=== PATIENT | female | born 1990 | race Asian ===

== ENCOUNTER 2022-01-27 19:19 | Inpatient (IN) ==
--- NOTE | 2022-01-27 20:15 | History & Physical Report ---
Date of Service January 27, 2022 Assessment & Plan (1) Gestational diabetes mellitus (GDM) affecting : (2) IUGR (intrauterine growth restriction) affecting care of mother: (3) Unfavorable cervix in term : (4) 39 weeks gestation of : Plan virk ripening balloon placed and pt tate well. will monitor x 1hr and dc home. parameters to call reviewed. what to expect with virk ripening balloon reviewed. Admission and Anticipated Discharge Date Admission Date: January 27, 2022 History of Present Illness Chief Complaint: unfavorable cx at term, iugr Primary Care Provider: NO PCP 31yo at 39wks ega presents to LD for planned virk ripening balloon for unfavorable cx at term, planned induction in am for IUGR. Feels well. No complaints. +FM. PNC c/b 1. iugr 2. gdm PNL rh pos, ri gbs neg OBH: g1 Allergies Allergy/AdvReac Type Severity Reaction Status Date / Time No Known Allergies Allergy Verified 01/25/22 13:13 Home Medications Medication Instructions Recorded Confirmed Type prenat.vits,carlito,nzv-ojdj-hcsyh 1 tab PO DAILY 06/22/21 01/27/22 History acetone (urine) test (Ketone Urine #50 ea 09/07/21 01/25/22 Rx Test) blood sugar diagnostic (OneTouch #150 ea 09/07/21 01/25/22 Rx Verio test strips) blood-glucose meter (OneTouch #1 ea 09/07/21 01/25/22 Rx Verio Flex meter) lancets 33 gauge (OneTouch Delica #150 ea 09/07/21 01/25/22 Rx Plus Lancet) Breast Pump #1 ea 10/19/21 01/25/22 Rx Patient History Medical History (Updated 01/27/22 @ 20:14 by Ariana Garrido MD, FACOG) Varicella vaccination Surgical History (Updated 06/22/21 @ 11:11 by Omayra Scott) S/P wisdom tooth extraction Family History (Updated 06/22/21 @ 11:01 by Omayra Scott) Father Diabetes Denies family history of Ovarian cancer Breast cancer Colorectal cancer Hypertension Social History (Updated 06/22/21 @ 11:00 by Omayra Scott) Smoking Status: Never smoker Hx Alcohol Use: No Hx Substance Use: No Preferred Language: Japanese marital status: marital status details: Brenda Batista (30) [phone] Current Living Situation: Spouse Current Living Situation Comment: FOB, no pets current occupational status: unemployed Feels Safe at Home: Yes Safety Concerns: Feels Safe At This Time Review of Systems as per Subjective / HPI Physical Exam Constitutional: WD/WN, vitals as above Neurologic: grossly normal Psychiatric: A+Ox3, euthymic affect Genitourinary: Manual OB Exam: + cervical dilation (<1cm by visualization/50%) OB Exam Monitor Tracing: + external FHT monitor used, + external uterine monitor used (irreg), + category I (nst reactive) and + normal FHT variability PROCEDURE: sse cx visualized, grasped on ant lip with ring forcep, virk through os and balloon inflated with 40cc sterile water. Spec removed, virk taped to leg. pt tate well. Results & Data ([facility]) Vital Signs (Past 12 Hours) Vital Signs Temp Pulse Resp BP 01/27/22 19:35 98.6 F 89 18 107/72 01/27/22 19:32 98.6 F 89 18 107/72 Coding Level of Care Code None Diagnoses Gestational diabetes mellitus (GDM) affecting O24.419 IUGR (intrauterine growth restriction) affecting care of mother O36.5990 Unfavorable cervix in term O34.40 39 weeks gestation of Z3A.39 CPT Codes Misx Procedure Codes - 25973 Placement of cervical dilator: 60513 Placement of cervical dilator ([id number]) Misx Procedure Codes - 53858 NST: 41910 NST ([id number])
== END 2022-01-27 21:21 | disposition home or self-care (01) | DRG 833 ==
LOC: 4S1 19:22

== ENCOUNTER 2022-01-28 11:42 | Inpatient (IN) ==
[2022-01-28] MEDS: LACTATED RINGER'S 1,000 ML IV PRN ×3 (12:26→22:52)
[2022-01-28] MEDS ORDERED: OXYTOCIN 30 UNITS/500 ML BAG IV PRN ×2 (12:29→12:30)
[2022-01-28 12:55] LABS: Hematocrit (blood only) 37.6 % (34.1-44.9); Hemoglobin 12.4 g/dl (12.0-16.0); Mean Corpuscular Hemoglobin 29.4 pg (25.0-34.0); Mean Corpuscular Volume 89.1 fL (80.0-100.0); Mean Platelet Volume 10.7 fL (9.4-12.3); Platelet Count 170 K/uL (130-400); RDW Coefficient of Variation 12.8 % (11.5-14.5); Red Blood Count 4.22 M/uL (3.93-5.22); White Blood Count 10.75 K/ul (4.8-10.8)
--- NOTE | 2022-01-28 13:04 | History & Physical Report ---
Date of Service January 28, 2022 Assessment & Plan (1) IUGR (intrauterine growth restriction) affecting care of mother: Plan: IUP at 39 weeks with IUGR for IOL will keep cervical balloon in place and begin pitocin induction epidural when requested anticipate vaginal Admission and Anticipated Discharge Date Admission Date: January 28, 2022 History of Present Illness Primary Care Provider: NO PCP Patient is a 31yo EDC [birth year] who presents for IOL because of IUGR. testing as been reassuring. GBS -negative. Hickey balloon placed last night and is still in place. some cramping last evening but this resolved. no bloody show or SPROM. also complicated by GDM -diet controlled. Allergies Allergy/AdvReac Type Severity Reaction Status Date / Time No Known Allergies Allergy Verified 01/25/22 13:13 Home Medications Medication Instructions Recorded Confirmed Type prenat.vits,carlito,vsm-ledi-cjaur 1 tab PO DAILY 06/22/21 01/27/22 History acetone (urine) test (Ketone Urine #50 ea 09/07/21 01/25/22 Rx Test) blood sugar diagnostic (OneTouch #150 ea 09/07/21 01/25/22 Rx Verio test strips) blood-glucose meter (OneTouch #1 ea 09/07/21 01/25/22 Rx Verio Flex meter) lancets 33 gauge (OneTouch Delica #150 ea 09/07/21 01/25/22 Rx Plus Lancet) Breast Pump #1 ea 10/19/21 01/25/22 Rx Patient History Medical History (Updated 01/27/22 @ 20:14 by Ariana Garrido MD, FACOG) Varicella vaccination Surgical History (Updated 06/22/21 @ 11:11 by Omayra Scott) S/P wisdom tooth extraction Family History (Updated 06/22/21 @ 11:01 by Omayra Scott) Father Diabetes Denies family history of Ovarian cancer Breast cancer Colorectal cancer Hypertension Social History (Updated 06/22/21 @ 11:00 by Omayra Scott) Smoking Status: Never smoker Hx Alcohol Use: No Hx Substance Use: No Preferred Language: Upper Sorbian Communication Ability: Effective Glaze Mixer Required: No Beliefs That Will Affect Care: None marital status: marital status details: Brenda Lynne (30) [phone] Current Living Situation: Spouse Current Living Situation Comment: FOB, no pets current occupational status: unemployed Feels Safe at Home: Yes Assistive Devices: Glasses Review of Systems All systems reviewed & are unremarkable except as noted in HPI & below Physical Exam Constitutional: WD/WN, vitals as above Psychiatric: A+Ox3, euthymic affect Genitourinary: OB Exam Abdomen: + vertex and + estimated weight (5-6 pounds) Manual OB Exam: + cervical dilation 2 cm, + cervical effacement 70% and + station -2 OB Exam Monitor Tracing: + external FHT monitor used, + external uterine monitor used, + category I and + normal FHT variability Results & Data ([facility]) Vital Signs (Past 12 Hours) Vital Signs Temp Pulse Resp BP 01/28/22 11:52 98.8 F 18 01/28/22 12:01 89 106/67 Coding Level of Care Code None Diagnoses IUGR (intrauterine growth restriction) affecting care of mother O36.5990
[2022-01-28] MEDS ORDERED: ePHEDrine sulfate 50 MG/ML AMP ONE (20:28)
[2022-01-28] MEDS ORDERED: fentaNYL 2MCG/ML ROPIVACAINE 1.25MG/ML 100 ML BAG EPI ONE (20:29)
[2022-01-28] MEDS ORDERED: BUPIVACAINE 0.25% 30 ML VIAL ONE (20:29)
[2022-01-28] MEDS ORDERED: LIDOCAINE 2%/EPINEPHRINE 1:200,000 20 ML SDV ONE (20:29)
[2022-01-28] MEDS ORDERED: SODIUM CHLORIDE 0.9% INJ 10 ML VIAL ONE (20:29)
[2022-01-28] MEDS ORDERED: fentaNYL citrate 100 MCG/2 ML VIAL ONE (20:29)
[2022-01-28] MEDS ORDERED: ONDANSETRON INJ 2 MG/ML 2 ML VIAL IV PRN (21:24)
[2022-01-28] MEDS ORDERED: ePHEDrine sulfate 50 MG/ML AMP IV PRN (21:24)
[2022-01-28] MEDS ORDERED: NALOXONE HCL 1 MG in SODIUM CHLORIDE 0.9% 1000ML 1,000 ML IV PRN (21:24)
[2022-01-28] MEDS ORDERED: diphenhydrAMINE 50 MG/ML VIAL IV PRN (21:24)
[2022-01-28] MEDS ORDERED: NALBUPHINE HCL INJ 10 MG/ML AMP IV PRN (21:24)
[2022-01-28] MEDS ORDERED: NALOXONE HCL 0.4 MG/1 ML VIAL/CARP IV PRN (21:24)
--- NOTE | 2022-01-28 21:26 | Anesthesiology Consultation ---
Date of Service January 28, 2022 Assessment & Plan (1) Encounter for pre-operative examination: Chart Review Chart Review: Patient NOT seen in Pre Admission Testing and Acceptable Risk for Labor Epidural Consults Requested none History Height/Weight Height: 5 ft 2.99 in Weight: 61.235 kg Allergies Allergy/AdvReac Type Severity Reaction Status Date / Time No Known Allergies Allergy Verified 01/28/22 13:27 Medications Home Medications Medication Instructions Recorded Confirmed Last Taken prenat.vits,carlito,rui-tnxi-aprgd 1 tab PO DAILY 06/22/21 01/28/22 01/28/22 11:00 acetone (urine) test (Ketone Urine #50 ea 09/07/21 01/25/22 Unknown Test) blood sugar diagnostic (OneTouch #150 ea 09/07/21 01/25/22 Unknown Verio test strips) blood-glucose meter (OneTouch #1 ea 09/07/21 01/25/22 Unknown Verio Flex meter) lancets 33 gauge (OneTouch Delica #150 ea 09/07/21 01/25/22 Unknown Plus Lancet) Breast Pump #1 ea 10/19/21 01/25/22 Unknown Active Medications Generic Name Dose Route Start Last Admin Trade Name Freq PRN Reason Stop Dose Admin Lactated Ringer's 1,000 mls @ 125 mls/hr 01/28/22 12:29 01/28/22 20:45 Lr IV 01/30/22 12:28 999 mls/hr .Q8H PRN Infusion L&D Protocol Protocol Oxytocin 30 units in 500 mls @ 11 mls/hr 01/28/22 12:30 01/28/22 20:00 Pitocin IV 01/30/22 12:29 0.66 units/hr .Q24H PRN 11 mls/hr Labor Induction/Augmentation Titration Protocol 0.66 UNITS/HR Past Medical History Medical History Varicella vaccination Exercise / Class Metabolic Activity II 4-5 Yardwork/Stairs/Walk up hill Past Family History Family History Father Diabetes Denies family history of Ovarian cancer Breast cancer Colorectal cancer Hypertension Past Surgical History Surgical History S/P wisdom tooth extraction Past Anesthesia History No Hx of Anesthesia Complications and No Family Hx of Anesthesia Complications History of PONV No Hx of PONV and No Hx of Motion Sickness Social History Smoking Status: Never smoker Hx Alcohol Use: No Hx Substance Use: No Physical Exam Vital Signs Last Vital Signs Temp 36.8 C 01/28/22 19:00 Pulse 84 01/28/22 21:21 Resp 16 01/28/22 19:00 BP 100/61 01/28/22 20:56 Pulse Ox 96 01/28/22 21:21 Testing Laboratory Results 01/28/22 12:40 01/28/22 13:24 POC Glucose 86
[2022-01-28] MEDS: fentaNYL 2MCG/ML ROPIVACAINE 1.25MG/ML 100 ML BAG EPI PRN (21:53)
[2022-01-29] MEDS ORDERED: BUPIVACAINE 0.25% 30 ML VIAL INFIL ONE (00:31)
[2022-01-29] MEDS ORDERED: BUPIVACAINE 0.25% 30 ML VIAL ONE (00:33)
--- NOTE | 2022-01-29 00:43 | Communication Note ---
Date of Service: January 29, 2022 pt endorsing increasing pain. left side not as numb. rotated left side down and bolused 5ml of 0.25% bup via epidural while pt on monitor. sbp decreased to 80's and pt given 5mg of ephedrine. denies nausea, lightheadedness.
[2022-01-29] MEDS: fentaNYL 2MCG/ML ROPIVACAINE 1.25MG/ML 100 ML BAG EPI PRN ×2 (03:54→10:24)
--- NOTE | 2022-01-29 03:55 | Communication Note ---
Date of Service: January 29, 2022 pt again endorsing increasing pain, lower middle part of abdomen. sbp low 90's so only gave 5ml of 2% lido with epi.
[2022-01-29] MEDS: LACTATED RINGER'S 1,000 ML IV PRN (06:20)
[2022-01-29] MEDS ORDERED: NURSING L&D Epidural Breakthrough Pain Update ONE (08:03)
--- NOTE | 2022-01-29 09:19 | Labor Progress Brief Note ---
Date of Service January 29, 2022 Subjective I received sign-out and have assumed care of patient. She is uncomfortable, feeling ctx. Asking for re-dose of epidural. FHT Cat 1 [place] Q 2 SVE 8/100/+1 (this is my first exam of patient - head is sitting low in pelvis, there is some swollen cervix around head, more prominent posteriorly) Patient voiced that she'd like to avoid episiotomy if possible. Continue labor. Assessment & Plan Admission and Anticipated Discharge Date Admission Date: January 28, 2022 Results & Data ([facility]) Vital Signs (Past 12 Hours) Vital Signs Temp Pulse Pulse Resp BP BP Pulse Ox 01/29/22 08:08 37.0 C 18 01/29/22 07:10 37.3 C 87 16 91/58 L 92 01/29/22 08:11 92 H 97 01/29/22 08:06 89 95 01/29/22 08:01 92 H 96 01/29/22 07:56 84 97 01/29/22 07:54 85 103/62 01/29/22 07:51 94 H 95 01/29/22 07:46 92 H 95 01/29/22 07:41 87 96 01/29/22 07:38 88 93/52 L 01/29/22 07:36 83 94 01/29/22 07:31 89 95 01/29/22 07:26 87 95 01/29/22 07:23 88 90/58 L 01/29/22 07:21 97 H 95 01/29/22 07:16 92 H 95 01/29/22 07:11 88 95 01/29/22 07:09 92 H 91/58 L 01/29/22 07:08 37.3 C 86 18 89/51 L 01/29/22 07:06 96 H 96 01/29/22 07:01 99 H 97 01/29/22 06:56 92 H 98 01/29/22 06:53 93 H 90/52 L 01/29/22 06:51 95 H 96 01/29/22 06:46 80 95 01/29/22 06:41 87 96 01/29/22 06:38 85 90/52 L 01/29/22 06:36 87 97 01/29/22 06:31 85 96 01/29/22 06:26 82 96 01/29/22 06:24 93 H 92/53 L 01/29/22 06:21 94 H 96 01/29/22 06:16 92 H 97 01/29/22 06:11 93 H 97 01/29/22 06:09 85 97/52 L 01/29/22 06:06 85 98 01/29/22 06:00 16 01/29/22 06:00 37.5 C 16 01/29/22 06:01 88 98 01/29/22 05:56 92 H 99 01/29/22 05:51 118 H 98 01/29/22 05:46 100 H 98 01/29/22 05:41 89 97 01/29/22 05:38 97 H 115/70 01/29/22 05:36 90 97 01/29/22 05:31 87 97 01/29/22 05:26 89 98 01/29/22 05:23 92 H 114/69 01/29/22 05:21 95 H 97 01/29/22 05:16 99 H 98 01/29/22 05:11 100 H 98 01/29/22 05:08 93 H 116/73 01/29/22 05:06 94 H 100 01/29/22 05:01 108 H 98 01/29/22 04:56 104 H 98 01/29/22 04:51 37.6 C H 109 H 16 98 01/29/22 04:46 97 H 97 01/29/22 04:41 90 97 01/29/22 04:40 96 H 113/75 01/29/22 04:36 83 97 01/29/22 04:31 88 98 01/29/22 04:26 85 98 01/29/22 04:21 83 98 01/29/22 04:00 18 01/29/22 04:00 18 01/29/22 04:20 77 110/67 01/29/22 04:16 78 98 01/29/22 04:15 80 113/71 01/29/22 04:11 97 01/29/22 04:11 88 01/29/22 04:11 75 107/60 01/29/22 04:06 81 99 01/29/22 03:55 18 01/29/22 03:55 18 01/29/22 04:03 79 87/52 L 01/29/22 04:01 82 96 01/29/22 03:57 78 90/55 L 01/29/22 03:56 81 98 01/29/22 03:51 69 98 01/29/22 03:52 73 92/57 L 01/29/22 03:46 75 99 01/29/22 03:43 74 92/59 L 01/29/22 03:41 74 98 01/29/22 03:36 84 99 01/29/22 03:31 79 100 01/29/22 03:28 86 101/70 01/29/22 03:26 84 97 01/29/22 03:21 80 98 01/29/22 03:16 87 98 01/29/22 03:13 81 93/55 L 01/29/22 03:11 80 97 01/29/22 03:06 82 99 01/29/22 03:00 18 01/29/22 03:00 37.1 C 18 01/29/22 03:01 91 H 99 01/29/22 02:57 78 92/60 L 01/29/22 02:56 85 97 01/29/22 02:51 95 H 99 01/29/22 02:46 86 96 01/29/22 02:41 84 88/56 L 96 01/29/22 02:36 86 95 01/29/22 02:31 83 97 01/29/22 02:26 82 94/56 L 98 01/29/22 02:21 88 99 01/29/22 02:16 83 98 01/29/22 02:11 78 98 01/29/22 02:12 79 96/59 L 01/29/22 02:06 81 99 01/29/22 02:01 79 99 01/29/22 01:56 87 98 01/29/22 01:57 86 102/62 01/29/22 01:51 87 99 01/29/22 01:46 83 99 01/29/22 01:43 86 91/55 L 01/29/22 01:41 94 H 97 01/29/22 01:36 78 95 01/29/22 01:31 82 95 01/29/22 01:26 78 94 01/29/22 01:27 80 92/55 L 01/29/22 01:21 86 95 01/29/22 01:16 85 95 01/29/22 01:10 16 01/29/22 01:10 37.1 C 16 01/29/22 01:11 87 96 01/29/22 01:10 85 16 88/56 L 01/29/22 01:06 96 H 95 01/29/22 01:05 83 89/54 L 01/29/22 01:01 96 H 96 01/29/22 01:02 87 90/55 L 01/29/22 00:56 86 95 01/29/22 00:55 86 92/54 L 01/29/22 00:40 16 01/29/22 00:40 16 01/29/22 00:51 88 95 01/29/22 00:49 83 97/58 L 01/29/22 00:47 82 95/58 L 01/29/22 00:46 93 H 97 01/29/22 00:45 93 H 91/61 L 01/29/22 00:43 95 H 87/57 L 01/29/22 00:41 94 01/29/22 00:41 79 01/29/22 00:41 74 83/54 L 01/29/22 00:39 71 88/51 L 01/29/22 00:36 75 18 95 01/29/22 00:31 81 96 01/29/22 00:26 75 95 01/29/22 00:24 75 101/64 01/29/22 00:21 73 95 01/29/22 00:16 79 95 01/29/22 00:11 71 97 01/29/22 00:09 69 115/73 01/29/22 00:06 77 96 01/29/22 00:01 79 95 01/28/22 23:56 83 94 01/28/22 23:55 74 93/63 L 01/28/22 23:51 79 95 01/28/22 23:46 84 96 01/28/22 23:41 82 95 01/28/22 23:39 85 95/66 L 01/28/22 23:36 81 97 01/28/22 23:31 82 97 01/28/22 23:26 88 96 01/28/22 23:24 75 91/50 L 01/28/22 23:21 82 96 01/28/22 23:16 79 96 01/28/22 23:11 83 95 01/28/22 23:10 72 91/53 L 01/28/22 23:06 76 96 01/28/22 23:01 82 16 96 01/28/22 22:56 78 96 01/28/22 22:51 76 96 01/28/22 22:46 83 96 01/28/22 22:30 14 01/28/22 22:30 14 01/28/22 22:41 81 95 01/28/22 22:39 75 90/56 L 01/28/22 22:36 76 95 01/28/22 22:31 81 94 01/28/22 22:26 77 95 01/28/22 22:24 74 90/54 L 01/28/22 22:21 83 95 01/28/22 22:16 78 95 01/28/22 22:15 18 01/28/22 22:15 18 01/28/22 21:50 18 01/28/22 21:50 18 01/28/22 22:11 75 95 01/28/22 22:07 78 91/57 L 01/28/22 22:06 80 95 01/28/22 22:01 95 01/28/22 22:01 77 01/28/22 22:01 75 93/59 L 01/28/22 21:59 86 92/60 L 01/28/22 21:56 85 95 01/28/22 21:57 77 93/57 L 01/28/22 21:55 77 16 91/57 L 91 01/28/22 21:53 85 92/56 L 01/28/22 21:51 95 01/28/22 21:51 77 01/28/22 21:51 70 90/55 L 01/28/22 21:49 73 01/28/22 21:49 75 94/53 L 92 01/28/22 21:47 76 107/66 01/28/22 21:46 98 H 119/65 96 01/28/22 21:41 84 97 01/28/22 21:36 90 96 01/28/22 21:31 92 H 97 01/28/22 21:26 79 96 01/28/22 21:21 84 96 O2 Del Method 01/29/22 08:08 01/29/22 07:10 Room Air 01/29/22 08:11 01/29/22 08:06 01/29/22 08:01 01/29/22 07:56 01/29/22 07:54 01/29/22 07:51 01/29/22 07:46 01/29/22 07:41 01/29/22 07:38 01/29/22 07:36 01/29/22 07:31 01/29/22 07:26 01/29/22 07:23 01/29/22 07:21 01/29/22 07:16 01/29/22 07:11 01/29/22 07:09 01/29/22 07:08 01/29/22 07:06 01/29/22 07:01 01/29/22 06:56 01/29/22 06:53 01/29/22 06:51 01/29/22 06:46 01/29/22 06:41 01/29/22 06:38 01/29/22 06:36 01/29/22 06:31 01/29/22 06:26 01/29/22 06:24 01/29/22 06:21 01/29/22 06:16 01/29/22 06:11 01/29/22 06:09 01/29/22 06:06 01/29/22 06:00 01/29/22 06:00 01/29/22 06:01 01/29/22 05:56 01/29/22 05:51 01/29/22 05:46 01/29/22 05:41 01/29/22 05:38 01/29/22 05:36 01/29/22 05:31 01/29/22 05:26 01/29/22 05:23 01/29/22 05:21 01/29/22 05:16 01/29/22 05:11 01/29/22 05:08 01/29/22 05:06 01/29/22 05:01 01/29/22 04:56 01/29/22 04:51 01/29/22 04:46 01/29/22 04:41 01/29/22 04:40 01/29/22 04:36 01/29/22 04:31 01/29/22 04:26 01/29/22 04:21 01/29/22 04:00 01/29/22 04:00 01/29/22 04:20 01/29/22 04:16 01/29/22 04:15 01/29/22 04:11 01/29/22 04:11 01/29/22 04:11 01/29/22 04:06 01/29/22 03:55 01/29/22 03:55 01/29/22 04:03 01/29/22 04:01 01/29/22 03:57 01/29/22 03:56 01/29/22 03:51 01/29/22 03:52 01/29/22 03:46 01/29/22 03:43 01/29/22 03:41 01/29/22 03:36 01/29/22 03:31 01/29/22 03:28 01/29/22 03:01/29/22 03:21 01/29/22 03:16 01/29/22 03:13 01/29/22 03:11 01/29/22 03:06 01/29/22 03:00 01/29/22 03:00 01/29/22 03:01 01/29/22 02:57 01/29/22 02:56 01/29/22 02:51 01/29/22 02:46 01/29/22 02:41 01/29/22 02:36 01/29/22 02:01/29/22 02:01/29/22 02:21 01/29/22 02:16 01/29/22 02:11 01/29/22 02:12 01/29/22 02:06 01/29/22 02:01 01/29/22 01:56 01/29/22 01:57 01/29/22 01:51 01/29/22 01:46 01/29/22 01:43 01/29/22 01:41 01/29/22 01:36 01/29/22 01:01/29/22 01:01/29/22 01:01/29/22 01:01/29/22 01:01/29/22 01:01/29/22 01:01/29/22 01:11 01/29/22 01:10 01/29/22 01:06 01/29/22 01:05 01/29/22 01:01 01/29/22 01:02 01/29/22 00:56 01/29/22 00:55 01/29/22 00:40 01/29/22 00:40 01/29/22 00:51 01/29/22 00:49 01/29/22 00:47 01/29/22 00:46 01/29/22 00:45 01/29/22 00:43 01/29/22 00:41 01/29/22 00:41 01/29/22 00:41 01/29/22 00:39 01/29/22 00:36 01/29/22 00:31 01/29/22 00:26 01/29/22 00:24 01/29/22 00:21 01/29/22 00:16 01/29/22 00:11 01/29/22 00:09 01/29/22 00:06 01/29/22 00:01 01/28/22 23:56 01/28/22 23:55 01/28/22 23:51 01/28/22 23:46 01/28/22 23:41 01/28/22 23:39 01/28/22 23:36 01/28/22 23:31 01/28/22 23:26 01/28/22 23:24 01/28/22 23:21 01/28/22 23:16 01/28/22 23:11 01/28/22 23:10 01/28/22 23:06 01/28/22 23:01 01/28/22 22:56 01/28/22 22:51 01/28/22 22:46 01/28/22 22:30 01/28/22 22:30 01/28/22 22:41 01/28/22 22:39 01/28/22 22:36 01/28/22 22:31 01/28/22 22:26 01/28/22 22:24 01/28/22 22:21 01/28/22 22:16 01/28/22 22:15 01/28/22 22:15 01/28/22 21:50 01/28/22 21:50 01/28/22 22:11 01/28/22 22:07 01/28/22 22:06 01/28/22 22:01 01/28/22 22:01 01/28/22 22:01 01/28/22 21:59 01/28/22 21:56 01/28/22 21:57 01/28/22 21:55 01/28/22 21:53 01/28/22 21:51 01/28/22 21:51 01/28/22 21:51 01/28/22 21:49 01/28/22 21:49 01/28/22 21:47 01/28/22 21:46 01/28/22 21:41 01/28/22 21:36 01/28/22 21:31 01/28/22 21:26 01/28/22 21:21 Coding Level of Care Code None
--- NOTE | 2022-01-29 09:21 | Communication Note ---
Date of Service: January 29, 2022 Called receive from bedside RN regarding increased pain, patient states pain mainly right sided similar to before with contractions, describes as sharp and pressure-like motor function preserved sensation decreased to b/l lower extremities, positioned patient on ride side bolus 4 cc 2%lido with epi
--- NOTE | 2022-01-29 13:17 | Delivery Summary ---
Vaginal Delivery Summary Date of Service January 29, 2022 Vaginal Delivery Summary and 2nd Degree LAC Vaginal Delivery Summary: Pre-delivery diagnoses: 31yo @ 39 2/7, IOL for IUGR, GDMA1 Post-delivery diagnoses: same Procedure: spontaneous vaginal delivery, repair of 2nd degree perineal laceration Surgeon: Leslie Fish DO Complications: none Findings: Viable male . Apgars: 8/9. Weight pending, please see nursery records. Estimated blood loss: 500ml Description of delivery: The patient progressed to complete with epidural anesthesia. She then began to push. She spontaneously vaginally delivered a viable from the cephalic presentation. The head delivered in DAMIR position. The anterior shoulder delivered, followed by the posterior shoulder, followed by the body. Tight nuchal, not able to reduce - delivered through. The baby was placed on mother's abdomen and a spontaneous cry was heard. Delayed cord clamping was employed, and the cord was doubly clamped and cut. Cord blood was obtained. The placenta was delivered spontaneously intact with a 3-vessel cord. The uterus and vagina were swept of clots and debris. IV pitocin was given. The uterus became firm. The cervix, vagina, and perineum were inspected and a 2nd degree perineal laceration was noted and repaired with 3-0 Vicryl in standard fashion. There was additional bleeding at the perineum - the uterus was firm, cervix evaluated and intact, no deeper sulcal tears - bleeding from perineal laceration suture points - Elia applied and did not stop bleeding, this was then oversewn with a [id number] of 3-0 vicryl and led to excellent hemostasis. Excellent hemostasis was observed. The mother and baby are recovering in stable and good condition in the room. Sponge, needle and instrument counts were correct x 2. Leslie Fish DO [facility] Vaginal Delivery Charge Vaginal Delivery Codes: 35855 global code for the antepartum, delivery, and post- Delivery Type Details: and 2nd Degree LAC
[2022-01-29] MEDS ORDERED: DIPHTHERIA/TETANUS/PERTUSSIS 0.5 ML SYR/VIAL IM ONE (13:21)
[2022-01-29] MEDS ORDERED: OXYTOCIN 30 UNITS/500 ML BAG IV PRN (13:21)
[2022-01-29] MEDS ORDERED: HYDROCORTISONE ACETATE 25 MG SUPP PR PRN (13:21)
[2022-01-29] MEDS ORDERED: ACETAMINOPHEN 325 MG TAB PO PRN (13:21)
[2022-01-29] MEDS ORDERED: oxyCODONE/ACETAMINOPHEN 5mg/325mg TAB PO PRN (13:21)
[2022-01-29] MEDS ORDERED: bisacodyL 10 MG SUPP PR PRN (13:21)
[2022-01-29] MEDS: BENZOCAINE 20% AER SPR 82.5 GM CAN EXT PRN (15:15)
--- NOTE | 2022-01-29 15:17 | Anesthesia Procedure Note ---
Date of Service January 29, 2022 Anesthesia Post Epidural Note Vital Signs Vital Signs: Temp Pulse Resp BP Pulse Ox O2 Del Method 99.0 F 105 H 16 92/61 L 97 01/29/22 11:25 01/29/22 15:14 01/29/22 11:25 01/29/22 15:14 01/29/22 13:16 01/29/22 07:10 Pain Intensity Lower Abdomen: Pain Intensity: 4 Notes Mental Status: alert / awake / arousable and participated in evaluation Nausea / Vomiting: adequately controlled Pain: adequately controlled Airway Patency, RR, SpO2: stable & adequate BP & HR: stable & adequate Hydration State: stable & adequate Neuraxial Anesthesia: was administered and sensory block is resolving Anesthetic Complications: no major complications apparent and Pt Satisfied with anesthetic care Epidural: Removed without complications and With tip intact
[2022-01-29 18:47] LABS: Hematocrit (blood only) 31.4 % (34.1-44.9); Hemoglobin 10.4 g/dl (12.0-16.0)
[2022-01-29] MEDS: DOCUSATE SODIUM 100 MG CAP PO SCH (20:47)
[2022-01-30] MEDS: IBUPROFEN 600 MG TAB PO PRN ×2 (05:18→23:29)
--- NOTE | 2022-01-30 05:32 | Obstetrical Progress Note ---
Date of Service <Jennifer Gutierresjonahbettina DO - Last Filed: 01/30/22 06:33> January 30, 2022 Assessment & Plan <Jennifer Gutierresjonahbettina DO - Last Filed: 01/30/22 06:33> (1) 39 weeks gestation of : Patient is PPD day 1 s/p and doing well. - Feels well today. Eating well, voiding well, ambulating with some dizziness - Pain well controlled with ibuprofen 600 mg Q4H PRN - OOB, ambulation, diet progression as tolerated - Pt interested in sitz bath/ways to control her vaginal bleeding - Plan to discharge tomorrow - After discharge, 6 week follow up with Dr[address] Fish <Leslie Fish, - Last Filed: 01/30/22 07:34> (1) 39 weeks gestation of : Subjective <Jennifer Gutierreslukasz, DO - Last Filed: 01/30/22 06:33> Willy Nelson is a 31 yo female who is now PPD #1 following spontaneous vaginal delivery at 39 weeks. Reports feeling ok this morning. Endorses mainly vaginal pain that is 6/10 pain but manageable on analgesics. Voiding well but has noticed burning and bleeding. Tolerating meals overnight although yesterday she had no appetite. She is able to ambulate some. Not passing gas and no bowel movements. Some persistent lochia that she describes as mostly bleeding with some improvement this morning. Currently breast and bottle feeding. Her Hgb has dropped from 12.5 (01/28) to 10.4 today. She endorses that she gets dizzy when she stands up from sitting/laying. She also notices increased bleeding when sitting up from laying down. Review of Systems Denies fever, chills, sweats. Denies SOB, difficulty breathing, chest pain, palpitations, and chest pressure. Denies breast pain. Denies dysuria. Denies headache or changes in vision. <Leslie Fish, - Last Filed: 01/30/22 07:34> Willy Nelson is a 31 yo female who is now PPD #1 following spontaneous vaginal delivery at 39 weeks. Reports feeling ok this morning. Endorses mainly vaginal pain that is 6/10 pain but manageable on analgesics. Voiding well but has noticed burning and bleeding. Tolerating meals overnight although yesterday she had no appetite. She is able to ambulate some. Not passing gas and no bowel movements. Some persistent lochia that she describes as mostly bleeding with some improvement this morning. Currently breast and bottle feeding. She endor ses that she gets dizzy when she stands up from sitting/laying. She also notices increased bleeding when sitting up from laying down. Physical Exam <Jennifer Celestin DO - Last Filed: 01/30/22 06:33> General: Alert and oriented. No acute distress. CV: Regular rate and rhythm. No murmurs. Respiratory: CTA bilaterally. No rhonchi, wheezes, or crackles. No increased work of breathing. Abdomen: Positive bowel sounds. Soft, nontender, non distended. Uterus: Fundus firm and palpable 2 cm below the umbilicus. Lower extremities: No LE edema. No deep calf pain. Rosa's negative bilaterally. Results & Data ([facility]) <Jennifer Celestin DO - Last Filed: 01/30/22 06:33> Vital Signs (Past 12 Hours) Vital Signs Temp Pulse Pulse Resp BP Pulse Ox O2 Del Method 01/29/22 23:45 36.8 C 100 H 16 93/64 L 98 Room Air 01/29/22 20:30 36.9 C 100 H 18 101/70 97 Room Air <Leslie Fish DO - Last Filed: 01/30/22 07:34> Co-Signing Physician Notes Resident Physician Supervision Note: I was present with Dr. Celestin during the history and exam. I discussed the case with the resident and agree with the findings and plan as documented in the note. Any exceptions or clarifications are listed here: PPD#1 doing well. Watching for H/H repeat today. On exam, moderate lochia, firm fundus. Anticipate DC home tomorrow. Documented By: Leslie Fish DO Resident Activity Tracking <Jennifer Celestin DO - Last Filed: 01/30/22 06:33> Resident Involvement: Resident Care Provided Care Provided: OB Delivery
[2022-01-30 07:34] LABS: Hematocrit (blood only) 25.3 % (34.1-44.9); Hemoglobin 8.4 g/dl (12.0-16.0)
[2022-01-30] MEDS: DOCUSATE SODIUM 100 MG CAP PO SCH ×2 (08:29→20:50)
[2022-01-30] MEDS: PRENATAL VITAMIN 1 TAB PO SCH (08:30)
[2022-01-30 12:26] LABS: Hematocrit (blood only) 27.1 % (34.1-44.9); Hemoglobin 8.9 g/dl (12.0-16.0)
[2022-01-30] MEDS: BENZOCAINE 20% AER SPR 82.5 GM CAN EXT PRN (12:45)
[2022-01-30] MEDS ORDERED: bisacodyL 5 MG TABEC PO SCH (20:00)
--- NOTE | 2022-01-31 06:52 | Obstetrical Progress Note ---
Date of Service <Jennifer Celestin DO - Last Filed: 01/31/22 06:52> January 31, 2022 Assessment & Plan <Jennifer Jim Celestin DO - Last Filed: 01/31/22 06:52> (1) 39 weeks gestation of : Patient is PPD day 2 s/p and doing well. - Feels well today. Eating well, voiding well, ambulating well - Pain well controlled with ibuprofen 600 mg Q4H PRN - OOB, ambulation, diet progression as tolerated - Plan to discharge today - After discharge, 6 week follow up with <Rubens Jimenez MD - Last Filed: 01/31/22 08:14> (1) 39 weeks gestation of : Subjective <Jennifer Jim Celestin DO - Last Filed: 01/31/22 06:52> Willy Nelson is a 31 yo female who is now PPD #2 following spontaneous vaginal delivery at 39 weeks. Reports feeling well this morning. She no longer feels dizzy when walking around. Some abdominal cramping and 3-4/10 pain well managed on analgesics. Voiding without issue. Tolerating meals overnight and able to ambulate some. Endorses passing gas but no bowel movements. Some persistent lochia with some improvement this morning. Currently breast and bottle feeding. Review of Systems Denies fever, chills, sweats. Denies SOB, difficulty breathing, chest pain, palpitations, and chest pressure. Denies breast pain. Denies dysuria. Denies headache or changes in vision. Physical Exam <Jennifer Celestin DO - Last Filed: 01/31/22 06:52> General: Alert and oriented. No acute distress. CV: Regular rate and rhythm. No murmurs. Respiratory: CTA bilaterally. No rhonchi, wheezes, or crackles. No increased work of breathing. Abdomen: Positive bowel sounds. Soft, nontender, non distended. Uterus: Fundus firm and palpable 4 cm below the umbilicus. Lower extremities: No LE edema. No deep calf pain. Rosa's negative bilaterally. Results & Data ([facility]) <Jennifer Celestin DO - Last Filed: 01/31/22 06:52> Vital Signs (Past 12 Hours) Vital Signs Temp Pulse Resp BP Pulse Ox O2 Del Method 01/31/22 04:00 36.4 C L 71 16 90/55 L 01/30/22 23:30 36.7 C 80 16 95/61 L 01/30/22 20:50 36.6 C 85 17 102/71 99 Room Air <Rubens Jimenez MD - Last Filed: 01/31/22 08:14> Co-Signing Physician Notes Patient seen and evaluated with resident and agree with the above findings and plan. Stable for discharge Resident Activity Tracking <Jennifer Celestin DO - Last Filed: 01/31/22 06:52> Resident Involvement: Resident Care Provided Care Provided: OB Delivery
[2022-01-31] MEDS: PRENATAL VITAMIN 1 TAB PO SCH (08:01)
[2022-01-31] MEDS: DOCUSATE SODIUM 100 MG CAP PO SCH (08:01)
== END 2022-01-31 14:15 | disposition home or self-care (01) | DRG 807 ==
LOC: 4S1 11:42 → 4E2 01-29 19:18